=== PATIENT | male | born 1995 | race Caucasian/White ===

== ENCOUNTER 2017-03-07 13:50 | Emergency (ER) | payer OTHER ==
[~2017-03-07] VITALS: Ht 160 cm; Wt 55.5 kg
[~2017-03-07 13:50] MED LIST: BACTRIM,SEPT1 TABLE1 PO; METHOTREXATE2.5 M2 PO; OXYCODONE5 MG PO; PREDNISONE20 MG PO; RISPERDAL1 MG PO; VYVANSE40 MG PO; ZOFRAN8 M1 PO
[2017-03-07] MEDS ORDERED: NAPROXEN500 MG PO (16:21)
[2017-03-07 16:35] VITALS: BP 113/75
== END 2017-03-07 16:35 | disposition home or self-care (01) ==
LOC: EME 13:50
DX: S70.02XA Contusion of left hip, initial encounter (principal); V19.9XXA Pedal cyclist (driver) (passenger) injured in unspecified traffic accident, initial encounter; Y93.55 Activity, bike riding; Z85.830 Personal history of malignant neoplasm of bone
CPT/HCPCS: 73502; 99281; 99282

== ENCOUNTER 2017-08-12 12:36 | Emergency (ER) | payer OTHER ==
[~2017-08-12] VITALS: Ht 162.6 cm; Wt 54.1 kg
[~2017-08-12 12:36] MED LIST changes: +NAPROXEN500 MG PO
[2017-08-12 17:43] LABS: HEMATOCRIT 42.3 % (38.0-50.0); HEMOGLOBIN 14.8 G/DL (12.5-16.6); MCH 33.5 PG (29.0-34.0); MCV 95.7 FL (86-99); RBC DIS.WIDTH-CV 11.9 % (11.8-14.6); RBC DIS.WIDTH-SD 41.4 % (39-53); RED BLOOD COUNT 4.42 M/uL (4.00-5.50); WHITE BLOOD COUNT 5.8 K/uL (4.1-10.2)
[2017-08-12 17:52] LABS: CHLORIDE 102 mEq/L (99-109); SODIUM 140 mEq/L (136-147)
[2017-08-12 17:54] LABS: GLUCOSE 82 mg/dL (70-99)
[2017-08-12 17:58] LABS: CREATININE 0.8 mg/dL (0.6-1.3); GFR ESTIMATE (CALCULATED) > 59 mL/min/ (58.99-99999)
[2017-08-12 17:59] LABS: UREA NITROGEN (BUN) 11 mg/dL (9-23)
[2017-08-12 18:05] LABS: TROP-I INTERPRETATION NEGATIVE; TROPONIN-I < 0.01 ng/mL (0.0-0.30)
[2017-08-12 18:49] LABS: PLATELET COUNT 194 K/uL (156-360)
[2017-08-12 19:12] VITALS: BP 115/65
== END 2017-08-12 19:32 | disposition home or self-care (01) ==
LOC: EME 12:36
PROVIDERS: Physician Assistant
DX: M79.605 Pain in left leg (principal); R06.02 Shortness of breath; M54.5 Low back pain; F17.200 Nicotine dependence, unspecified, uncomplicated; Z85.830 Personal history of malignant neoplasm of bone; Z85.118 Personal history of other malignant neoplasm of bronchus and lung; Z90.2 Acquired absence of lung [part of]; Z88.5 Allergy status to narcotic agent
CPT/HCPCS: 71046; 72100; 73552; 80048; 84484; 85027; 93005; 99281; 99284; J1885